=== PATIENT | male | born 1980 | race Caucasian/White ===

== ENCOUNTER 2024-05-03 08:14 | Day surgery (SDC) | payer BC ==
[~2024-05-03 08:14] MED LIST: Sodium Chloride 0.9% 10 ML Syringe FLUSH PRN
[2024-05-03] MEDS: Lactated Ringers 1,000 ML IV SCH (08:20)
[2024-05-03] MEDS ORDERED: Midazolam 1 MG/ML 2 ML SDV ONE (08:48)
[2024-05-03] MEDS ORDERED: Lidocaine 2% 100 MG/5 ML Syringe ONE (08:49)
[2024-05-03] MEDS ORDERED: Propofol 200 MG/20 ML SDV ONE (08:49)
[2024-05-03] MEDS ORDERED: Ketamine 200 MG/20 ML MDV ONE (08:49)
[2024-05-03] MEDS ORDERED: Glycopyrrolate 0.2 MG/ML SDV ONE (08:49)
[2024-05-03] MEDS ORDERED: Lactated Ringers 1,000 ML ONE (09:39)
== END 2024-05-03 11:35 | disposition home or self-care (01) ==
LOC: KA.SDS 08:14
PROVIDERS: ATTEND Surgery
DX: K21.00 Gastro-esophageal reflux disease with esophagitis, without bleeding (principal); K31.7 Polyp of stomach and duodenum; R63.4 Abnormal weight loss
CPT/HCPCS: 00813; 43239; 45380; J1596; J2250; J2704; J7120; J3490